=== PATIENT | female | born 1980 | race Caucasian/White ===

== ENCOUNTER 2020-02-15 15:14 | Outpatient (CLI) | payer BC ==
--- NOTE | 2020-02-15 16:16 | ULT ---
RENAL ULTRASOUND: 02/15/20 INDICATION: History of recurrent UTIs. COMPARISON: None. FINDINGS: The right kidney measures 9.3 x 3.7 x 4.2 cm with right renal cortical thickness of 1 cm. The left kidney measures 10 x 5.4 x 5.5 cm with a left renal cortical thickness of 1.9 cm. No hydronephrosis is evident. No focal renal lesion is demonstrated. There are bilateral ureteral jets identified at the level of the bladder. The prevoid bladder volume was 331.2 mL. The postvoid bladder volume was 4.7 mL. The micturated volume was 326.5 mL. IMPRESSION: 1. Slightly atrophy right kidney. 2. No additional sonographic abnormality seen. POS: [facility]
== END 2020-02-15 15:15 | disposition home or self-care (01) ==
LOC: SCSULT 15:14
PROVIDERS: ATTEND Internal Medicine
DX: N39.0 Urinary tract infection, site not specified (principal); N26.1 Atrophy of kidney (terminal)
CPT/HCPCS: 36415; 76770; 80053; 80061; 81001; 84439; 84443; 85025; 87491; 87591